=== PATIENT | female | born 1975 | race Caucasian/White ===

== ENCOUNTER 2018-03-16 09:00 | Inpatient (IN) | payer OTHER ==
[~2018-03-16] VITALS: Ht 165.1 cm; Wt 69.0 kg
[~2018-03-16 09:00] MED LIST: CYCL10 PO; GABA300 PO; HYDACE10B PO; IBUP600 PO; OXYC5 PO
[2018-03-16] MEDS ORDERED: Verotin-Gr Cap1 EACH PO (09:45)
[2018-03-16 09:54] LABS: BASOPHILS ABSOLUTE AUTO 0.02 K/mm3 (0.00-0.23); BASOPHILS PERCENT AUTO 0 % (0-2); EOSINOPHILS ABSOLUTE AUTO 0.02 K/mm3 (0.00-0.68); EOSINOPHILS PERCENT AUTO 0 % (0-6); Hematocrit 37.9 % (33.0-51.0); Hemoglobin 13.1 g/dL (11.5-16.0); IMMATURE GRAN ABSOLUTE AUTO 0.02 K/mm3 (0.00-0.10); IMMATURE GRAN PERCENT AUTO 0 % (0-1); LYMPHOCYTES ABSOLUTE AUTO 1.39 K/mm3 (0.84-5.20); LYMPHOCYTES PERCENT AUTO 15 % (21-46); MONOCYTES PERCENT AUTO 6 % (4-13); Mean Corpuscular HGB 30.8 pg (26.0-34.0); Mean Corpuscular HGB Conc 34.6 g/dL (31.5-36.5); Mean Corpuscular Volume 89 fL (80-100); Mean Platelet Volume 11.2 fL (9.1-12.4); NEUTROPHILS ABSOLUTE AUTO 7.36 K/mm3 (1.96-9.15); NEUTROPHILS PERCENT AUTO 78 % (41-73); Platelet Count 191 K/mm3 (150-400); Red Blood Cell Count 4.25 M/mm3 (3.80-5.20); White Blood Cell Count 9.41 K/mm3 (4.00-11.30)
[2018-03-16 11:20] LABS: PCO2 Cord - Arterial 53.7 mmHg (40-50); PO2 Cord - Arterial 14.4 mmHg (16-20); pH Cord - Arterial 7.25 (7.28-7.35)
[2018-03-16 11:21] LABS: pH Umbilical Cord - Venous 7.29 (7.26-7.35)
[2018-03-16 11:24] LABS: PCO2 Cord - Venous 50.5 mmHg (40-50); PO2 Cord - Venous 12.3 mmHg (28-32)
[2018-03-17 06:04] LABS: Hematocrit 34.3 % (33.0-51.0); Hemoglobin 11.6 g/dL (11.5-16.0); Mean Corpuscular HGB 30.7 pg (26.0-34.0); Mean Corpuscular HGB Conc 33.8 g/dL (31.5-36.5); Mean Corpuscular Volume 91 fL (80-100); Mean Platelet Volume 10.6 fL (9.1-12.4); Platelet Count 148 K/mm3 (150-400); RDW Coefficient Variation 13.2 % (11.7-14.2); RDW Standard Deviation 43.1 fL (35.1-46.3); Red Blood Cell Count 3.78 M/mm3 (3.80-5.20); White Blood Cell Count 9.57 K/mm3 (4.00-11.30)
== END 2018-03-18 11:00 | disposition home or self-care (01) | DRG 766 ==
LOC: OBS 09:00 → BC 09:24
PROVIDERS: Nurse Practitioner Obstetrics & Gynecology; Obstetrics & Gynecology
PROC: 10D00Z1 Extraction of Products of Conception, Low, Open Approach (ICD-10-PCS; principal; 2018-03-16 10:15)
PROC: 0UT70ZZ Resection of Bilateral Fallopian Tubes, Open Approach (ICD-10-PCS; 2018-03-16 10:15)
DX: O34.211 Maternal care for low transverse scar from previous cesarean delivery (principal); Z3A.36 36 weeks gestation of pregnancy; Z37.0 Single live birth; O69.81X0 Labor and delivery complicated by cord around neck, without compression, not applicable or unspecified
CPT/HCPCS: 36415; 82803; 85025; 85027; 86850; 86900; 86901; J0690; J1885; J2370; J2405; J2590; J2765; J3010; J7120

== ENCOUNTER 2019-04-19 10:22 | Emergency (ER) | payer OTHER ==
[~2019-04-19] VITALS: Ht 165.1 cm; Wt 61.2 kg
[~2019-04-19 10:22] MED LIST changes: +Verotin-Gr Cap1 EACH PO
[2019-04-19] MEDS ORDERED: GABA100 PO (10:46)
[2019-04-19] MEDS ORDERED: [UNRECOGNIZED DRUG - OTHER] PO (10:47)
[2019-04-19 11:23] LABS: BASOPHILS ABSOLUTE AUTO 0.05 K/mm3 (0.00-0.23); BASOPHILS PERCENT AUTO 1 % (0-2); EOSINOPHILS ABSOLUTE AUTO 0.05 K/mm3 (0.00-0.68); EOSINOPHILS PERCENT AUTO 1 % (0-6); Hematocrit 41.8 % (33.0-51.0); Hemoglobin 13.6 g/dL (11.5-16.0); IMMATURE GRAN ABSOLUTE AUTO 0.03 K/mm3 (0.00-0.10); IMMATURE GRAN PERCENT AUTO 0 % (0-1); LYMPHOCYTES ABSOLUTE AUTO 1.54 K/mm3 (0.84-5.20); LYMPHOCYTES PERCENT AUTO 17 % (21-46); MONOCYTES ABSOLUTE AUTO 0.46 K/mm3 (0.16-1.47); MONOCYTES PERCENT AUTO 5 % (4-13); Mean Corpuscular HGB 30.2 pg (26.0-34.0); Mean Corpuscular HGB Conc 32.5 g/dL (31.5-36.5); Mean Corpuscular Volume 93 fL (80-100); Mean Platelet Volume 9.8 fL (9.1-12.4); NEUTROPHILS ABSOLUTE AUTO 7.09 K/mm3 (1.96-9.15); NEUTROPHILS PERCENT AUTO 77 % (41-73); Platelet Count 324 K/mm3 (150-400); RDW Coefficient Variation 13.4 % (11.7-14.2); Red Blood Cell Count 4.51 M/mm3 (3.80-5.20); White Blood Cell Count 9.22 K/mm3 (4.00-11.30)
[2019-04-19 11:46] LABS: Alanine Aminotransfer (ALT/SGP 21 U/L (12-78); Albumin, Blood 4.1 g/dL (3.4-5.0); Alk Phos 88 U/L (50-136); Anion Gap 7 mmol/L (6-16); Aspartate Aminotrans (AST/SGOT 15 U/L (12-37); Bilirubin, Total 0.6 mg/dL (0.1-1.0); Blood Urea Nitrogen 10 mg/dL (8-24); Bun/Creatinine Ratio 13.6 (12.0-20.0); CO2, Blood 27 mmol/L (21-32); Chloride, Blood 103 mmol/L (98-108); Creatinine, Blood 0.74 mg/dL (0.40-1.00); Glomerular Filtration Rate >60 (60-); Glucose, Blood 103 mg/dL (70-99); Potassium, Blood 4.1 mmol/L (3.5-5.5); Sodium, Blood 137 mmol/L (136-145); Total Protein, Blood 8.1 g/dL (6.4-8.2)
== END 2019-04-19 13:18 | disposition home or self-care (01) ==
LOC: ER 10:22
PROVIDERS: Physician Assistant
DX: M50.221 Other cervical disc displacement at C4-C5 level (principal); Z79.899 Other long term (current) drug therapy; F17.200 Nicotine dependence, unspecified, uncomplicated
CPT/HCPCS: 36415; 80053; 85025; 99283

== ENCOUNTER 2020-04-24 18:06 | Emergency (ER) | payer OTHER ==
[~2020-04-24] VITALS: Ht 165.1 cm; Wt 68.0 kg
[~2020-04-24 18:06] MED LIST changes: +GABA100 PO; +[UNRECOGNIZED DRUG - OTHER] PO
== END 2020-04-24 21:35 | disposition home or self-care (01) ==
LOC: ER 18:06
DX: S01.112A Laceration without foreign body of left eyelid and periocular area, initial encounter (principal); F10.129 Alcohol abuse with intoxication, unspecified; F17.200 Nicotine dependence, unspecified, uncomplicated; Z23 Encounter for immunization; W22.8XXA Striking against or struck by other objects, initial encounter
CPT/HCPCS: 12013; 70450; 90471; 90714; 99283-25

== ENCOUNTER 2024-08-20 10:49 | Emergency (ER) | payer OTHER ==
[~2024-08-20] VITALS: Ht 165.1 cm; Wt 58.5 kg
[2024-08-20 11:37] LABS: Albumin, Blood 2.1 g/dL (3.4-5.0); Albumin/Globulin Ratio 0.4 (0.8-1.8); Bilirubin, Direct 1.7 mg/dL (0.0-0.3); Bilirubin, Indirect 1.2 mg/dL (0.1-0.7); Bilirubin, Total 2.9 mg/dL (0.1-1.0); Bun/Creatinine Ratio 12.7 (12.0-20.0); Calcium, Blood 7.7 mg/dL (8.5-10.1); Creatinine, Blood 0.32 mg/dL (0.40-1.00); Globulin, Blood 5.6 g/dL (2.2-4.0); Potassium, Blood 3.3 mmol/L (3.5-5.5); Total Protein, Blood 7.7 g/dL (6.4-8.2)
[2024-08-20 15:40] LABS: International Normalized Ratio 1.34
[2024-08-20 16:13] LABS: BASOPHILS PERCENT AUTO 1 % (0-2); EOSINOPHILS ABSOLUTE AUTO 0.05 K/mm3 (0.00-0.68); EOSINOPHILS PERCENT AUTO 0 % (0-6); Hemoglobin 8.7 g/dL (11.5-16.0); IMMATURE GRAN ABSOLUTE AUTO 0.12 K/mm3 (0.00-0.10); IMMATURE GRAN PERCENT AUTO 1 % (0-1); LYMPHOCYTES ABSOLUTE AUTO 1.73 K/mm3 (0.84-5.20); LYMPHOCYTES PERCENT AUTO 10 % (21-46); MONOCYTES ABSOLUTE AUTO 1.12 K/mm3 (0.16-1.47); MONOCYTES PERCENT AUTO 6 % (4-13); Mean Corpuscular HGB 33.1 pg (26.0-34.0); Mean Corpuscular HGB Conc 33.5 g/dL (31.5-36.5); Mean Corpuscular Volume 99 fL (80-100); Mean Platelet Volume 11.1 fL (9.1-12.4); NEUTROPHILS ABSOLUTE AUTO 14.73 K/mm3 (1.96-9.15); NEUTROPHILS PERCENT AUTO 82 % (41-73); Platelet Count 214 K/mm3 (150-400); RDW Coefficient Variation 18.6 % (11.7-14.2); RDW Standard Deviation 67.4 fL (35.1-46.3); Red Blood Cell Count 2.63 M/mm3 (3.80-5.20); White Blood Cell Count 17.85 K/mm3 (4.00-11.30)
[2024-08-20 17:00] VITALS: BP 119/89
== END 2024-08-20 17:07 | disposition home or self-care (01) ==
LOC: ER 10:49
PROVIDERS: Physician Assistant; Student in an Organized Health Care Education/Training Program
DX: K74.60 Unspecified cirrhosis of liver (principal); F10.90 Alcohol use, unspecified, uncomplicated; F17.210 Nicotine dependence, cigarettes, uncomplicated
CPT/HCPCS: 74177; 80048; 80076; 83690; 83880; 84703; 85025; 85610; 85730; 99284-25; Q9967

== ENCOUNTER 2025-01-10 10:01 | Inpatient (IN) | payer OTHER ==
[~2025-01-10] VITALS: Ht 165.1 cm; Wt 58.8 kg
[2025-01-10] MEDS ORDERED: NS 1,000 ML IV SCH ×2 (10:40→13:45)
[2025-01-10] MEDS ORDERED: Morphine Sulfate 4 MG/1 ML Injection IV ONE (10:40)
[2025-01-10] MEDS ORDERED: Ketorolac Tromethamine 30mg Vial IV ONE (10:40)
[2025-01-10 11:29] LABS: Hematocrit 30.3 % (33.0-51.0); Hemoglobin 10.3 g/dL (11.5-16.0); Mean Corpuscular HGB 30.4 pg (26.0-34.0); Mean Corpuscular Volume 89 fL (80-100); Mean Platelet Volume 10.7 fL (9.1-12.4); Platelet Count 63 K/mm3 (150-400); RDW Coefficient Variation 14.6 % (11.7-14.2); RDW Standard Deviation 46.9 fL (35.1-46.3); Red Blood Cell Count 3.39 M/mm3 (3.80-5.20); White Blood Cell Count 16.51 K/mm3 (4.00-11.30)
[2025-01-10 11:36] LABS: Albumin, Blood 3.1 g/dL (3.4-5.0); Albumin/Globulin Ratio 0.6 (0.8-1.8); Bilirubin, Total 2.6 mg/dL (0.1-1.0); Bun/Creatinine Ratio 37.3 (12.0-20.0); C-REACTIVE PROTEIN, EXT RANGE 12.8 mg/dL (0.000-0.300); Calcium, Blood 8.6 mg/dL (8.5-10.1); Creatinine, Blood 0.91 mg/dL (0.40-1.00); Globulin, Blood 5.2 g/dL (2.2-4.0); Potassium, Blood 2.8 mmol/L (3.5-5.5); Total Protein, Blood 8.3 g/dL (6.4-8.2)
[2025-01-10] MEDS ORDERED: Lactated Ringer's 1,000 ML IV ONE (12:00)
[2025-01-10] MEDS ORDERED: Potassium Chloride 60 MEQ IV ONE (12:00)
[2025-01-10] MEDS ORDERED: Potassium Chloride 20 MEQ in NS 90 ML IV SCH (12:10)
[2025-01-10] MEDS ORDERED: Ampicillin Sod/Sulbactam Sod 3 GM in NS 100 ML IV ONE (12:15)
[2025-01-10] MEDS ORDERED: Fluorescein Sod 1MG Opth Strips BOTHEYES ONE (12:25)
[2025-01-10] MEDS ORDERED: Tetracaine HCl/Pf 0.5% Opth Soln 4 ml BOTHEYES ONE (12:25)
[2025-01-10 12:37] LABS: BAND PERCENT MAN 29 % (0-8); BASOPHILS PERCENT MAN 0 % (0-2); EOSINOPHILS PERCENT MAN 0 % (0-6); LYMPHOCYTES ABSOLUTE MAN 0.33 K/mm3 (0.84-5.20); LYMPHOCYTES PERCENT MAN 2 % (21-46); MONOCYTES ABSOLUTE MAN 0.49 K/mm3 (0.16-1.47); MONOCYTES PERCENT MAN 3 % (4-13); NEUTROPHILS ABSOLUTE MAN 15.68 K/mm3 (1.96-9.15); SEG NEUTROPHILS PERCENT MAN 66 % (41-73); TOTAL CELLS COUNTED 100
[2025-01-10] MEDS ORDERED: Vancomycin HCL 1,250 MG in NS 250 ML IV ONE (12:45)
[2025-01-10] MEDS ORDERED: Ofloxacin 0.3% Opth Soln 5 ML BOTHEYES ONE (13:00)
[2025-01-10] MEDS ORDERED: FLU VACC TS2024-25(6MOS UP)/PF 45 MCG/0.5 ML SYRINGE IM SCH (13:45)
[2025-01-10] MEDS ORDERED: OxyCODONE 5 mg/Acetamin 325 mg TABLET PO PRN (13:50)
[2025-01-10] MEDS ORDERED: Ketorolac Tromethamine 30mg Vial IV PRN (13:55)
[2025-01-10 15:50] VITALS: BP 128/73
[2025-01-10 16:00] VITALS: BP 119/63
[2025-01-10 17:00] VITALS: BP 116/64
[2025-01-10] MEDS ORDERED: Erythromycin 0.5% Opth Oint 1 gm LEFTEYE SCH (17:00)
--- NOTE | 2025-01-10 17:30 | NUR ---
THIS RN ASSUMED CARE OF PT AT 1630. PT IS ALERT AND ORIENTED AND VERY POLITE, CALLS OUT APPROPRIATELY. PT HEART RATE IS IN THE 120s, BLOOD PRESSURE IS STABLE AT 116/64 MAP OF 79, PT DENIES ANY CHEST PAIN UPON ASSESSMENT. PT IS ON ROOM AIR SATTING >95%, SOUNDS CLEAR THROUGHOUT AND PT DENIES SHORTNESS OF BREATH. PT LEFT EYE IS EXTREMELY SWOLLEN AND PAINFUL, BEING TREATED PER EMAR. DR. JONES HAS SEEN PT BEDSIDE, OPTHAMOLOGY HAS BEEN CONSULTED, NEW ORDERS ALSO PLACED BY DR. JONES. PT CAN VOID PER TOILET WITH NURSE ASSIST. NO OTHER INTERVENTIONS AT THIS TIME. PLAN OF CARE CONTINUED.
[2025-01-10] MEDS ORDERED: Ampicillin Sod/Sulbactam Sod 3 GM in NS 100 ML IV SCH (18:30)
--- NOTE | 2025-01-10 18:31 | NUR ---
Pt. is awake and sitting in a chair when she welcomes my visit. Pt. is very pleasant in spite of one of her eyes being swelled and oozing. Facilitated a life review and established a measure of rapport. Considered matters of sudha and belief. Prayed with Pt. Pt. verbalized gratitude for the spiritual life visit and welcomed this terra cotta roofer to return.
[2025-01-10 19:47] VITALS: BP 77/62
[2025-01-10 19:53] VITALS: BP 77/762
--- NOTE | 2025-01-10 20:39 | NUR ---
ASSUMPTION OF CARE CARE ASSUMED FOR THIS PT. PT SITTING UP IN BED ALERT AND ORIENTED TO ALL. MAEW. NO DIZZINESS, LIGHTHEADEDNESS. PT DOES ADMITS TO OCCASIONAL BLURRY VISION IN RIGHT EYE. LEFT EYE IS SEVERELY SWOLLEN, RED, TENDER, WITH EXUDATIVE DRAINAGE. THE PAIN IS PRESSURE LIKE AND THE ARE OF PAIN IS INCREASING AND SPREADING DOWN LEFT NECK AND FRONT OF HEAD UP TOWARDS CROWN OF HEAD. PT DOES NOTE SOME ATYPICAL, SPOTTY AREAS OF PAIN ON HER HEAD THAT IS A DIFFRENT CHARACTER OF PAIN, "MORE LIKE AFTER BUMPING MY HEAD." PAIN WILL BE CONTROLLED WITH ENVIRONMENTAL CONTROL, MEDS, REST. PIC OF BOTH EYE TAKEN. HR SINUS TACH AND MAP > 65. 100% ON RA. NO CHEST PAIN/PRESSURE, AB PAIN. NS INFUSING AT 150ML/HR. PT HAS CALL LIGHT HANDY.
[2025-01-10] MEDS ORDERED: Lactobacil 2-S.Thermo-Bifido 1 1 Cap PO SCH (21:00)
[2025-01-11] VITALS (16 sets, daily range): BP systolic 83–133; BP diastolic 55–85
[2025-01-11] MEDS ORDERED: Vancomycin HCL 750 MG in NS 250 ML IV SCH ×2 (02:00→18:00)
[2025-01-11 04:12] LABS: Hematocrit 25.9 % (33.0-51.0); Hemoglobin 8.7 g/dL (11.5-16.0); Mean Corpuscular HGB 30.3 pg (26.0-34.0); Mean Corpuscular HGB Conc 33.6 g/dL (31.5-36.5); Mean Corpuscular Volume 90 fL (80-100); Mean Platelet Volume 9.8 fL (9.1-12.4); RDW Coefficient Variation 14.6 % (11.7-14.2); RDW Standard Deviation 47.9 fL (35.1-46.3); Red Blood Cell Count 2.87 M/mm3 (3.80-5.20); White Blood Cell Count 13.22 K/mm3 (4.00-11.30)
[2025-01-11 04:19] LABS: Platelet Count 47 K/mm3 (150-400)
[2025-01-11 04:41] LABS: Bun/Creatinine Ratio 49.3 (12.0-20.0); Calcium, Blood 7.8 mg/dL (8.5-10.1); Creatinine, Blood 0.65 mg/dL (0.40-1.00); Potassium, Blood 3.2 mmol/L (3.5-5.5)
[2025-01-11 04:50] LABS: BAND PERCENT MAN 17 % (0-8); BASOPHILS PERCENT MAN 0 % (0-2); EOSINOPHILS ABSOLUTE MAN 0.52 K/mm3 (0.00-0.68); EOSINOPHILS PERCENT MAN 4 % (0-6); METAMYELOCYTE ABSOLUTE MAN 0.26 K/mm3 (0.00-0.00); METAMYELOCYTE PERCENT MAN 2 % (0-0); MONOCYTES ABSOLUTE MAN 0.13 K/mm3 (0.16-1.47); MONOCYTES PERCENT MAN 1 % (4-13); NEUTROPHILS ABSOLUTE MAN 12.29 K/mm3 (1.96-9.15); SEG NEUTROPHILS PERCENT MAN 76 % (41-73); TOTAL CELLS COUNTED 100
[2025-01-11] MEDS ORDERED: Potassium Chloride 40 MEQ in NS 250 ML IV ONE (05:58)
--- NOTE | 2025-01-11 06:23 | NUR ---
pt ambulated from ICU to PCU bed 19, pt alert and oriented. pt oriented to room, call light, etc. no s/s of distress noted
[2025-01-11] MEDS ORDERED: Enoxaparin 40 MG/0.4 ML SYR SC SCH (09:00)
--- NOTE | 2025-01-11 09:15 | NUR ---
AM NOTES; TRANSITIONED TO MED STATUS NO TELE. PT HAS BEEN AMBULATING IN HE ROOM INDEPENDENTLY. DR WAY CAME BY TO SEE PT TODAY, NO NEW ORDERS AT THIS TIME TO CONTINUE ANTIBIOTICS AND TO FF-UP IN A COUPLE DAYS. DR MCKEON CAME BY WELL, NO NEW ORDERS. PT'S MOM AT THE BEDSIDE TO VISIT. NS AT 100 MLS/HR RUNNING VIA PIV. POTASSIUM BAG INFUSING WELL. LEFT EYE REMAINED SWOLLEN BUT PER PT SWELLING HAS GONE DOWN A LITTLE BIT, SCABS AND EXUDATES PRESENT. ERYTHROMYCIN OINTMENT ADMINISTER THIS MORNING, PT WAS GIVEN A PACK OF STERILE GAUZE TO WIPE OFF EXUDATE. VITALS HAS BEEN STABLE, WILL CONTINUE TO MONITOR
--- NOTE | 2025-01-11 10:44 | NUR ---
Pt. is awake and sitting on the side of her bed when she welcomes my visit. Pts. turbine attendant is at bedside. Pt. verbalized that she feels there is progress, and that the doctors have helped confirm that her eyesight in both eyes is intact. Consderd matters of sudha and belief. Pt. is getting good spiritual care from her turbine attendant. Pt. verbalized ratitude for the spiritual care visit and welcomed this photographer portrait to return.
--- NOTE | 2025-01-11 11:41 | NUR ---
PT GOT LITTLE BIT AGITATED OF THE FLUIDS CURRENTLY INFUSING AT THIS TIME, PT ASKED WHY ITS TAKING FOREVER TO FINISH, EXPLAINED TO THE PT THAT IT IS A CONTINUOUS FLUIDS NEEDS TO BE INFUSED AND IF NEED HELP TO THE BATHROOM ASSISTANCE MAYBE NEEDED AND WAS INSTRUCTED TO USE CALL LIGHTS, PT THEN STATED "I DONT WANT TO USE THE BATHROOM RIGHT NOW I WANTED TO GO OUT IN THE PARKING LOT". WHEN PT WAS ASKED WHY SHE NEEDED TO GO TO THE PARKING LOT PT STATED "I WANTED TO GO OUT AND SMOKE". PT WAS EDUCATED ABOUT SMOKING HAZARDS AND THAT THE FACILITY IS A NO SMOKING FACILITY. PT REPLIED BACK "IM NOT SMOKING IN YOUR FACILITY IM GOING TO THE EMPTY BUILDING CLOSE BY AND SMOKE THERE" PT WAS THEN AGAIN EDUCATED AND OFFERED NICOTINE PATCH PT STILL REFUSED PT STATED NONE OF THEM WORKED FOR HER. OUTSOLE CUTTER MACHINE MADE AWARE. WILL CONTINUE TO MONITOR AT THIS TIME
[2025-01-11] MEDS ORDERED: CeFAZolin Sodium 2,000 MG in NS 100 ML IV SCH (12:00)
[2025-01-11] MEDS ORDERED: Nicotine Polacrilex 2 MG Gum PO PRN (13:10)
[2025-01-11] MEDS ORDERED: LORazepam 1 MG Tab PO PRN (13:10)
--- NOTE | 2025-01-11 14:20 | NUR ---
AT AROUND LUNCH TIME 1230 PT STARTED GETTING MORE ANXIOUS, ASSISTED TO THE BATHROOM TO CHANGE HOME CLOTHES TO GOWN, NOTICED SOME TREMORS AND UNSTEADY GAIT, PT WAS ASKED IF SHE'S ANXIOUS PT STATED "I JUST HEARD MY FAMILY OUTSIDE TALKING ABOUT ME AND I SAW MY KIDS EARLIER RUNNING AROUND". THIS RN ASKED ORIENTATION QUESTIONS, PT CAN STATE NAME , ALERT TO PERSON AND PLACE UNSURE OF DATE. DENIES ANY NAUSEA AND HEADACHE. PT WAS ASKED IF SHE DRINKS ALCOHOL PT WAS UNSURE OF RESPONSE "I HAVE IT IN MY BAG BEFORE I CAME IN BUT I HAVENT DRINK IT." CALLED EDIN TO GATHER MORE INFO DIDNT COUNTY SHERIFF MOTHER JEN WHO'S AT THE BEDSIDE THIS MORNING WAS CALLED WELL ABLE TO SAY THAT THE PT WAS IN REHAB FOR ALCOHOL ADDICTION FOR 6 WEEKS PRIOR TO COMING INTO THE HOSPITAL THEN CALLED BACK WAS ABLE TO VERIFY THE INFORMATION THAT THE MOM PROVIDED. MADE AWARE ORDER FOR ATIVAN 1MG Q4HRS WAS GIVEN ALSO NICORETTE GUM WHICH PT AGREED ON. CAME IN SOON AFTER THE CALL, THERE WAS SOME ARGUMENT I THE ROOM BETWEEN AND THE PT, PT SEEMED TO BE IN DENIAL IF STILL DRINKING ALCOHOL. AFTER THE ARGUMENT AND WHAT THE HAS NOTICED FROM THE PT, CAME OUT OF THE ROOM AND REPORTED TO THIS RN "YEAH I THINK SHE'S DEFINITELY WITHDRAWING WITH HER TREMORS AND THE HALLUCINATION" PT NOW RESTING IN BED AFTER 1MG OF ATIVAN WAS GIVEN, BED ALARM ON FOR SAFETY. CALL LIGHTS IN REACH. WILL CONTINUE TO MONITOR CIWA
--- NOTE | 2025-01-11 16:29 | NUR ---
UPDATE FACIAL SWELLING; FACE WAS MARKED AROUND LUNCH TIME NOTICED SOME INCREASE REDNESS AND SOME SWELLING CRAWLING DOWN THE CHEEK AND JAW AREA. MD AWARE, TO CONTINUE TO MONITOR AT THIS TIME, AND THEN THIS AFTERNOON WHEN PT WAS ASSISTED TO THE BATHROOM THE REDNESS AND SWELLING WAS PASS THE INK TRINO AND THE PT REPORTED TENDERNESS WHEN TOUCHED. MD CALLED AND MADE AWARE AGAIN ABLE TO COME BY AND SEE THE PT, TO REPEAT SCAN AWAITING FOR ORDERS AT THIS TIME, VITALS REMAINED STABLE. PT STILL HAS SOME CONFUSION, BED ALARM ON FOR SAFETY. WILL CONTINUE TO MONITOR
[2025-01-11] MEDS ORDERED: Meropenem 1,000 MG in NS 100 ML IV SCH (17:00)
--- NOTE | 2025-01-11 18:49 | NUR ---
PT SUMMARY; SEE PREVIOUS NOTES; DR WOOTEN CAME BACK TO REASSESS PT'S EYE AGAIN. ALSO LOOKED AT THE CURRENT HEAD CT. NO NEW ORDERS AT THIS TIME. PT STILL CONFUSED HALLUCINTATING, TREMULOUS CIWA AT 15 PT IMPULSIVE TRIED TO GO TO THE BATHROOM WITHOUT CLLING ALMOST HAD A FALL THIS RN CAUGHT PT RIGHT ON TIME, PT WAS GIVEN ANOTHER ATIVAN DOSE. DISCUSSED WITH PROGRAM SUPPORT SPECIALIST A NEED FOR A POSSIBLE SITTER TONIGHT. CAME AND WILLING TO STAY IF NEEDED. ALSO WAS GIVEN UPDATE REGARDING PT'S STATUS. PT ADMITTED OF DRINKING WHITE CLAWS PRIOR TO COMING TO THE HOSPITAL. PT NOW BACK IN BED RESTING. WILL REPORT TO ONCOMING SHIFT
--- NOTE | 2025-01-11 20:07 | NUR ---
ASSUMPTION OF CARE REPORT RECEIVED FROM DAY SHIFT RN AT 1915. ASSISTING PATIENT BACK TO BED DURING BEDSIDE SHIFT REPORT. PATIENT SHAKEY WITH AMBULATION. DAY SHIFT RN REPORTING HALLUCINATIONS DURING DAY SHIFT. AND PATIENT DENYING NEEDS AT THIS TIME. 1999- PATIENT WITH AUDITORY/VISUAL HALLUCATIONS AND TREMORS. PATIENT CALLING OUT AND OUT OF BED. CIWA 17. THIS RN CALLED HOSPITALIST TACHO WITH UPDATE. TACHO TO PLACE ORDERS.
[2025-01-11] MEDS ORDERED: LORazepam 2 MG/ML 1ML Injection IV PRN ×2 (20:10)
[2025-01-11] MEDS ORDERED: dexmedeTOMIDine 100 ML IV SCH (21:25)
--- NOTE | 2025-01-11 21:25 | NUR ---
TRANSFER TRANSFERRED FROM PCU VIA BED. PT IS ALERT, ORIENTED TO SELF ONLY AT THIS TIME. FOLLOWS SOME SIMPLE COMMANDS. MOVES ALL EXTREMITIES AND REPOSITIONS SELF IN BED. MUMBLED, NON-SENSICAL SPEECH. MONITOR SHOWS ST, RATE 100-110. BP STABLE. AFEBRILE. RA SATS STABLE. RESPIRATIONS UNLABORED, BUT DOES HAVE SNORING RESPIRATIONS AT TIMES. LEFT EYE CELLULITIS NOTED, MARKED WITH PEN- SEE PICTURES. PRECEDEX TO BE STARTED. PURE WICK PLACED. NOTIFIED OF TRANSFER BY HEBER RAMIREZ RN.
[2025-01-12] VITALS (38 sets, daily range): BP systolic 78–145; BP diastolic 49–84
[2025-01-12 04:03] LABS: Hematocrit 25.1 % (33.0-51.0); Hemoglobin 8.4 g/dL (11.5-16.0); Mean Corpuscular HGB 30.2 pg (26.0-34.0); Mean Corpuscular HGB Conc 33.5 g/dL (31.5-36.5); Mean Corpuscular Volume 90 fL (80-100); Mean Platelet Volume 10.8 fL (9.1-12.4); RDW Coefficient Variation 14.6 % (11.7-14.2); RDW Standard Deviation 48.9 fL (35.1-46.3); Red Blood Cell Count 2.78 M/mm3 (3.80-5.20)
[2025-01-12 04:16] LABS: Platelet Count 42 K/mm3 (150-400)
[2025-01-12 04:27] LABS: BAND PERCENT MAN 7 % (0-8); BASOPHILS PERCENT MAN 0 % (0-2); EOSINOPHILS ABSOLUTE MAN 0.47 K/mm3 (0.00-0.68); EOSINOPHILS PERCENT MAN 6 % (0-6); LYMPHOCYTES ABSOLUTE MAN 0.63 K/mm3 (0.84-5.20); LYMPHOCYTES PERCENT MAN 8 % (21-46); MONOCYTES ABSOLUTE MAN 0.63 K/mm3 (0.16-1.47); MONOCYTES PERCENT MAN 8 % (4-13); NEUTROPHILS ABSOLUTE MAN 6.16 K/mm3 (1.96-9.15); SEG NEUTROPHILS PERCENT MAN 71 % (41-73); TOTAL CELLS COUNTED 100
[2025-01-12 04:31] LABS: Bun/Creatinine Ratio 32.7 (12.0-20.0); Calcium, Blood 7.8 mg/dL (8.5-10.1); Creatinine, Blood 0.46 mg/dL (0.40-1.00); Potassium, Blood 3.5 mmol/L (3.5-5.5)
--- NOTE | 2025-01-12 06:13 | NUR ---
SHIFT SUMMARY PT STARTED ON PRECEDEX FOR INCREASED CIWA. TITRATED BETWEEN 0.2-0.5MCG/KG/HR BUT THEN EVENTUALLY STOPPED D/T HYPOTENSION. CIWA 9-21. MEDICATED WITH ATIVAN 2MG IV THIS AM. PT IS IMPULSIVE AND RESTLESS WHEN AWAKE. SPEECH IS MUMBLED. ORIENTED TO SELF ONLY. MOVES ALL EXTREMITIES AND REPOSITIONS SELF IN BED. PT WAS TACHYCARDIC WHEN FIRST TRANSFERRED, BUT HR IS NOW 60s. MAP >65 AT THIS TIME. RA SATS STABLE. AFEBRILE. PUREWICK IN PLACE- DARK YELLOW URINE. LEFT EYE/FACE/THROAT UNCHANGED. NS INFUSING AT 150MLS/HR. PLAN OF CARE ONGOING. WILL REPORT TO ONCOMING RN WHEN AVAILABLE.
[2025-01-12] MEDS ORDERED: NS 1,000 ML IR ONE (10:00)
--- NOTE | 2025-01-12 14:51 | NUR ---
ASSUMED CARE AT 0700. PATIENT LETHARGIC AND LIMITED ASSESSMENT IN THE AM. PATIENT NOW MORE INTERACTIVE WITH ENVIRONMENT, FOLLOWING COMMANDS, COOPERATIVE PATIENT RESTING COMFORTABLY. VSS. NOTED TO BE DESATURATING DOWN INTO THE MID 80'S. 2LNC APPLIED. AFEBRILE. PER DR. SIMMONS (EYE DOC) PATIENT IS IMPROVING. FAMILY UPDATED AND AT BEDSIDE.
[2025-01-12] MEDS ORDERED: Thiamine HCl 500 MG in NS 100 ML IV SCH (16:00)
[2025-01-12] MEDS ORDERED: CeFAZolin Sodium 2,000 MG in NS 100 ML IV SCH (16:00)
[2025-01-13] VITALS (13 sets, daily range): BP systolic 104–130; BP diastolic 66–93
[2025-01-13 03:41] LABS: Hematocrit 25.3 % (33.0-51.0); Hemoglobin 8.3 g/dL (11.5-16.0); Mean Corpuscular HGB 29.7 pg (26.0-34.0); Mean Corpuscular HGB Conc 32.8 g/dL (31.5-36.5); Mean Corpuscular Volume 91 fL (80-100); Mean Platelet Volume 11.4 fL (9.1-12.4); Platelet Count 51 K/mm3 (150-400); RDW Coefficient Variation 14.7 % (11.7-14.2); RDW Standard Deviation 48.7 fL (35.1-46.3); Red Blood Cell Count 2.79 M/mm3 (3.80-5.20); White Blood Cell Count 6.87 K/mm3 (4.00-11.30)
[2025-01-13 04:03] LABS: Albumin, Blood 2.2 g/dL (3.4-5.0); Albumin/Globulin Ratio 0.6 (0.8-1.8); Bilirubin, Total 2.9 mg/dL (0.1-1.0); Bun/Creatinine Ratio 24.9 (12.0-20.0); Calcium, Blood 7.7 mg/dL (8.5-10.1); Creatinine, Blood 0.44 mg/dL (0.40-1.00); Globulin, Blood 3.8 g/dL (2.2-4.0)
[2025-01-13 05:31] LABS: BAND PERCENT MAN 3 % (0-8); BASOPHILS PERCENT MAN 0 % (0-2); EOSINOPHILS ABSOLUTE MAN 0.27 K/mm3 (0.00-0.68); EOSINOPHILS PERCENT MAN 4 % (0-6); LYMPHOCYTES PERCENT MAN 19 % (21-46); MONOCYTES ABSOLUTE MAN 0.61 K/mm3 (0.16-1.47); MONOCYTES PERCENT MAN 9 % (4-13); NEUTROPHILS ABSOLUTE MAN 4.67 K/mm3 (1.96-9.15); SEG NEUTROPHILS PERCENT MAN 65 % (41-73); TOTAL CELLS COUNTED 100
--- NOTE | 2025-01-13 05:58 | NUR ---
SHIFT SUMMARY NO ACUTE CHANGES DURING NOC. SLEPT WHEN UNDISTURBED. ROUSES EASILY TO VERBAL STIMULI. ORIENTED TO SELF AND TO PLACE, BUT NOT TO DATE/TIME. CIWA 6-7 DURING NOC. UP TO BSC WITH ONE PERSON ASSIST. VOIDING WITHOUT DIFFICULTY. TOLERATING FLUIDS. PT IS WEAK. DENIES C/O PAIN OR NAUSEA AT THIS TIME. PLACED ON 2L NC WHILE ASLEEP D/T SATS DROPPING TO MID-80s. BP WNL. AFEBRILE. NS INFUSING AT 150MLS/HR PER ORDER. NO CHANGED NOTED TO FACIAL CELLULITIS. PLAN OF CARE ONGOING.
[2025-01-13 06:11] LABS: Magnesium, Blood 1.4 mg/dL (1.6-2.4); Phosphorus, Blood 1.7 mg/dL (2.5-4.9)
[2025-01-13] MEDS ORDERED: Magnesium Sulf 2 GM/Water 50ML 50 ML IV ONE (06:45)
[2025-01-13] MEDS ORDERED: Potassium Phosphate Dibasic 30 MM in Dextrose 5% 500 ML IV ONE (06:45)
--- NOTE | 2025-01-13 07:26 | NUR ---
ASSUMED CARE OF PATIENT AT APPROXIMATELY 0700. REPORT RECEIVED FROM NERIS MOON. PT ASLEEP IN BED, WAKES AND INTERACTS WITH STAFF APPROPRIATELY DURING BEDSIDE REPORT. SWELLING TO L EYELID, CHEEK, AND JAW VISUALIZED. PT DENIES PAIN. CONTINUOUS CARDIAC MONITORING IN PLACE SHOWS SR, BP STABLE c MAP > 65. ON RA WITH O2 SATURATION > 92%. NS INFUSING AT 150 mL/HR. SEE SHIFT ASSESSMENT FOR FULL DETAILS.
[2025-01-13] MEDS ORDERED: NS 1,000 ML IV SCH (13:55)
--- NOTE | 2025-01-13 17:37 | NUR ---
SHIFT SUMMARY NO ACUTE CHANGES T/O SHIFT. CIWA SCORES < 8. UNSURE OF DATE AND TIME, OTHERWISE ORIENTED TO PERSON/SELF/PLACE/FAMILY/SITUATION. EYE SWELLING AND DISCOLORATION HAS IMPROVED SINCE THIS AM. MEDICATED FOR PAIN PER EMAR c GOOD BENEFIT. REPORT GIVEN TO NERISSA CORDON IN PCU AT 8671. PT TRANSFERRED VIA ENTRY WRITER AT 8605 TO PCU 06.
--- NOTE | 2025-01-13 18:16 | NUR ---
[place] of care: Received patient from ICU. Alert but slightly confused. No complaints of pain. Very unsteady on her feet when moving to bed from wheelchair. In NSR in the 70s with SBP 120s. On room air with stable oxygen saturations. Eating dinner. Voiding continently in commode per SALES ENABLEMENT SPECIALIST report. LBM today. PIV & powerglide IV in place. NS infusing at 75 cc/hr. L eye with edema/erythema -- ointment applied per orders. Will monitor.
[2025-01-14 03:57] VITALS: BP 122/76
[2025-01-14 04:15] LABS: Albumin, Blood 2.2 g/dL (3.4-5.0); Albumin/Globulin Ratio 0.6 (0.8-1.8); Bilirubin, Total 2.5 mg/dL (0.1-1.0); Bun/Creatinine Ratio 18.5 (12.0-20.0); Calcium, Blood 7.3 mg/dL (8.5-10.1); Creatinine, Blood 0.43 mg/dL (0.40-1.00); Globulin, Blood 3.9 g/dL (2.2-4.0); Total Protein, Blood 6.1 g/dL (6.4-8.2)
[2025-01-14 05:34] LABS: Magnesium, Blood 1.8 mg/dL (1.6-2.4)
--- NOTE | 2025-01-14 06:39 | NUR ---
SHIFT SUMMARY PT ALERT AND ORIENTED THROUGHOUT NIGHT. VSS ON RA. REMAINS ON TELE NSR 70s-80s. PT SHOWS MILD TO MODERATE TREMORS HOWEVER NO OTHER S/S OF WITHDRAWL THROUGHOUT NIGHT. PT DRINKING SMALL AMOUNTS OF FLUIDS AND WAS ABLE TO EAT FRUIT, THIS RN DECIDED TO CONTINUE NS FLUIDS AT THIS TIME. PT AT TIMES INCONTINENT OF URINE. ABDOMEN DISTENDED UPON ASSESSMENT. PT REPORTS MILD PAIN TO L EYE. PT EDUCATED ON HOW TO KEEP AREA CLEAN AND TO NOT TOUCH. NO FURTHER QUESTIONS OR CONCERNS AT THIS TIME. WILL CONTINUE WITH PLAN OF CARE AND REPORT TO ONCOMING NURSE.
[2025-01-14 07:31] VITALS: BP 130/86
[2025-01-14] MEDS ORDERED: Potassium Chloride 20 MEQ TabCR PO ONE (09:00)
[2025-01-14 11:01] VITALS: BP 124/78
[2025-01-14] MEDS ORDERED: LORazepam Conc 2 MG/ML - 1ML UDC PO PRN (14:55)
[2025-01-14 15:13] VITALS: BP 134/86
[2025-01-14] MEDS ORDERED: Erythromycin 0.5% Opth Oint 3.5 gm LEFTEYE SCH (17:00)
--- NOTE | 2025-01-14 18:06 | NUR ---
SHIFT SUMMARY PT REMAINS ALERT AND OREINTED, BUT LETHARGIC THIS AFTERNOON. BP STABLE. O2 SATS REMAIN ABOVE 90% ON RA. HR REMAINS NSR. PT DENIES ANY PAIN. WOUND TO EYE CLEANSED THIS SHIFT AND OINTMENT APPLIED PER EMAR. BED ALARM ON FOR SAFETY PATIENT TENDS TO GET UP BEOFRE CALLING. PT UNSTEADY ON HER FEET. WILL REPORT TO ONCOMING RN.
[2025-01-14 19:31] VITALS: BP 128/84
[2025-01-14] MEDS ORDERED: Nicotine Polacrilex 2 MG Gum PO PRN (21:10)
[2025-01-15 00:02] VITALS: BP 118/68
[2025-01-15 03:42] VITALS: BP 108/75
[2025-01-15 08:14] VITALS: BP 126/78
[2025-01-15 12:12] VITALS: BP 121/85
--- NOTE | 2025-01-15 17:40 | NUR ---
NURSING PCU DAYSHIFT SUMMARY: Pt has done well t/o the shift. Seen by PMD, new d/o received. Evaluated by P.T., ambulated halls w/o difficuly or use of assistive devices, received recommendation for independent ambulation per assessment. Family/friends at bedside intermittently t/o the shift. Updates provided and plan of care discussed. Pt appears in good spirits, hopeful for discharge soon though continues to deny desire for inpatient treatment options, outpatient services/resources provided by manager career. No s/s of acute distress at this time. Currently sitting on edge of bed having supper. Call light in reach, cont to monitor until rpt is given to NOC RN.
[2025-01-15 19:48] VITALS: BP 118/90
[2025-01-16 03:00] VITALS: BP 117/79
--- NOTE | 2025-01-16 05:18 | NUR ---
SHIFT SUMMARY NO ACUTE CHANGES THIS SHIFT. VSS. AXO4. INDEPENDENT IN ROOM. L EYE REMAINS SWOLLWN SHUT, PT STATES CONTINUED ABILITY TO SEE WITH EYE BUT DIFFICULT TO OPEN EYELIDS - PURULENT & SEROUS DRAINAGE NOTED, OINTMENT PER EMAR APPLIED. POWERGLIDE REMAINS PATENT. PT HOPING TO DC TODAY. OTHERWISE, PT RESTING OFF AND ON THIS SHIFT. BED IN LOW POSITION.
[2025-01-16 07:29] VITALS: BP 120/77
--- NOTE | 2025-01-16 09:51 | NUR ---
Pt. is awake and sitting upon the side of her bed when she welcomes my visit. Pt. is pleasant. Pt. verbalizes that she expects to discharge sometime today, and will get a second opinion from another eye doctor. Pt. displays evidence of confidence but is a little unsettled by the distraction of her eye infection. Cigarette Inspector Care is given as is prayer. Pt. verbalized gratitude for the spiritual care visit.
[2025-01-16] MEDS ORDERED: ERYT.5TO LEFTEYE (10:53)
[2025-01-16] MEDS ORDERED: CEPHALEXIN500 MG PO (11:00)
[2025-01-16] MEDS ORDERED: VISBIOME 112.51 EACH PO (11:00)
[2025-01-16] MEDS ORDERED: NICO2 PO (11:01)
--- NOTE | 2025-01-16 12:26 | NUR ---
1120 am: Pt was given discharge instructions and new prescriptions were reviewed with her. New Rx was faxed to [facility] in [place] at pt request. Request for medical records from [facility] to be sent to [facility] for inpatient alcohol addiction referral were faxed after pt completed and signed release of records request. Pt was given dates and times of follow up appointments with her PCP and with eye doctor, verbal and written. Powerglide was removed from RUE and pt called to have a ride arranged for herself.
== END 2025-01-16 11:38 | disposition home or self-care (01) | DRG 871 ==
LOC: ER 10:01 → PCU 13:42 → ERHOLD 13:42 → PCU 15:32 → ICUE 15:34 → PCU 01-11 05:59 → ICUE 01-11 21:20 → PCU 01-13 17:36
PROVIDERS: Internal Medicine; Student in an Organized Health Care Education/Training Program; ADMIT Internal Medicine
DX: A41.9 Sepsis, unspecified organism (principal); G93.41 Metabolic encephalopathy; R65.21 Severe sepsis with septic shock; E87.1 Hypo-osmolality and hyponatremia; E87.20 Acidosis, unspecified; L03.213 Periorbital cellulitis; F10.239 Alcohol dependence with withdrawal, unspecified; F17.210 Nicotine dependence, cigarettes, uncomplicated; D64.9 Anemia, unspecified; E87.6 Hypokalemia; M54.2 Cervicalgia; G89.29 Other chronic pain; J32.9 Chronic sinusitis, unspecified; E83.39 Other disorders of phosphorus metabolism; E83.42 Hypomagnesemia; Z87.59 Personal history of other complications of pregnancy, childbirth and the puerperium; Z98.1 Arthrodesis status
CPT/HCPCS: 36415; 70481; 70487; 80048; 80053; 83605; 83735; 84100; 85025; 85651; 86140; 87040; 87070; 87075; 87077; 87147; 87186; 87205; 93005; 93010; 96361; 96365; 96375; 97116; 97162; 99285-25; A9270; C1751; J0295; J0690; J1650; J1885; J2060; J2185; J2270; J3370; J3411; J3475; J3480; J7030; J7050; J7060; J7120; Q9967

== ENCOUNTER 2025-01-19 12:29 | Inpatient (IN) | payer OTHER ==
[~2025-01-19 12:29] MED LIST changes: +CEPHALEXIN500 MG PO; +ERYT.5TO LEFTEYE; +NICO2 PO; +VISBIOME 112.51 EACH PO
--- NOTE | 2025-01-19 13:19 | NUR ---
PT ARRIVED TO UNIT DIRECT ADMIT NOTIFIED DR NICOLE OF ADMIT, IN ROOM W/PT NOW. ORIENTED PT TO USE OF CALL LIGHT. PHOTOS TAKEN OF L EYE FOR CHART. CIGARETTES AND POLLUTION CONTROL TECHNICIAN LOCKED ON UNIT.
[2025-01-19] MEDS ORDERED: Polyethylene Glycol 3350 17 gm PO PRN (13:40)
[2025-01-19] MEDS ORDERED: Acetaminophen 500 MG Tab PO PRN (13:45)
[2025-01-19] MEDS ORDERED: CeFAZolin Sodium 2,000 MG in NS 100 ML IV SCH (14:00)
[2025-01-19] MEDS ORDERED: NS 250 ML IV PRN (14:05)
[2025-01-19 14:15] LABS: Hematocrit 28.2 % (33.0-51.0); Hemoglobin 9.1 g/dL (11.5-16.0); Mean Corpuscular HGB Conc 32.3 g/dL (31.5-36.5); Mean Corpuscular Volume 93 fL (80-100); Mean Platelet Volume 9.8 fL (9.1-12.4); Platelet Count 190 K/mm3 (150-400); RDW Coefficient Variation 16.5 % (11.7-14.2); RDW Standard Deviation 53.6 fL (35.1-46.3); Red Blood Cell Count 3.03 M/mm3 (3.80-5.20); White Blood Cell Count 14.75 K/mm3 (4.00-11.30)
[2025-01-19 14:38] LABS: Bun/Creatinine Ratio 14.7 (12.0-20.0); Calcium, Blood 8.5 mg/dL (8.5-10.1); Creatinine, Blood 0.41 mg/dL (0.40-1.00); Potassium, Blood 3.7 mmol/L (3.5-5.5)
[2025-01-19 14:46] VITALS: BP 116/80
--- NOTE | 2025-01-19 17:11 | NUR ---
SUMMARY NO ACUTE CHANGES SINCE ARRIVING TO UNIT DIRECT ADMIT. PT REC'D SCHEDULED ABX PER ORDERS. SALINE LOCKED AT THIS TIME. PHOTO TAKEN OF L EYE AND PLACED IN CHART. PT TOLERATING PO. INDEPENDENT IN ROOM. CALL LIGHT IN REACH.
[2025-01-19 20:07] VITALS: BP 117/54
[2025-01-19] MEDS ORDERED: Lactobacil 2-S.Thermo-Bifido 1 1 Cap PO SCH (21:00)
[2025-01-20 03:33] VITALS: BP 118/76
--- NOTE | 2025-01-20 06:47 | NUR ---
SHIFT SUMMARY NO ACUTE CHANGES TO REPORT OVERNIGHT, CELLULITIS TO LEFT EYE UNCHANGED. IV ANTIBIOTICS PER ORERS. PT REPORTS PAIN IS MINIMAL, DECLINES ANYTHING FOR PAIN. PT HAS BEEN INDEPENDENT IN THE ROOM. VITALS STABLE. PLAN OF CARE REMAINS UNCHANGED. BED IN LOWEST POSITION, CALL LIGHT WITHIN REACH.
[2025-01-20 07:28] VITALS: BP 115/61
[2025-01-20] MEDS ORDERED: Cholecalciferol 1000 Unit Tablet (=25MCG) PO SCH (09:00)
[2025-01-20] MEDS ORDERED: Enoxaparin 40 MG/0.4 ML SYR SC SCH (09:00)
[2025-01-20] MEDS ORDERED: Thiamine HCl 100 MG Tab PO SCH (09:00)
[2025-01-20] MEDS ORDERED: CefTRIAXone Sodium 2,000 MG in NS 100 ML IV SCH (12:00)
[2025-01-20] MEDS ORDERED: CEFTRIAXON1 GM/50 M1 IV (13:40)
[2025-01-20 13:48] VITALS: BP 144/86
--- NOTE | 2025-01-20 14:14 | NUR ---
DISCHARGE NOTE PT IS ALERT, INDEPENDENT, AMBULATING. VOIDING, TOLERATING REG DIET, IV ABX GIVEN NEEDED. POWERGLIDE WNL TO DANIELLE, FLUSHES WELL. VSS. DISCHARGE INSTRUCTIONS REVIEWED W/ PT, COPY GIVEN. PT INSTRUCTED TO GO TO [facility] FOR INFUSIONS AT 1100 DAILY, INCLUDING TOMORROW. PT'S CIGARETTES AND RN CLINICAL TRIALS RETURNED. DC'D IN STABLE CONDITION W/ ALL BELONGINGS, PT REFUSED WHEELCHAIR FOR DISCHARGE AND AMBULATED OUT.
== END 2025-01-20 14:13 | disposition home or self-care (01) | DRG 603 ==
LOC: SURS 12:29
PROVIDERS: ADMIT Internal Medicine
DX: L03.213 Periorbital cellulitis (principal); M54.2 Cervicalgia; G89.29 Other chronic pain; F17.210 Nicotine dependence, cigarettes, uncomplicated; D63.8 Anemia in other chronic diseases classified elsewhere; F10.20 Alcohol dependence, uncomplicated; Z98.1 Arthrodesis status; Z79.899 Other long term (current) drug therapy
CPT/HCPCS: 36415; 80048; 85027; 94760; A9270; J0690; J0696; J1650; J7050

== ENCOUNTER 2025-01-21 08:48 | Day surgery (SDC) | payer OTHER ==
[~2025-01-21 08:48] MED LIST changes: +CEFTRIAXON1 GM/50 M1 IV
[2025-01-21] MEDS ORDERED: CefTRIAXone Sodium 2,000 MG in NS 100 ML IV SCH (10:10)
[2025-01-21 11:17] VITALS: BP 118/69
== END 2025-01-21 11:32 | disposition home or self-care (01) ==
LOC: ATC 08:48
DX: L03.213 Periorbital cellulitis (principal); F10.20 Alcohol dependence, uncomplicated; Z72.0 Tobacco use
CPT/HCPCS: 96365; J0696

== ENCOUNTER 2025-01-22 00:35 | Day surgery (SDC) | payer OTHER ==
[2025-01-22] MEDS ORDERED: CefTRIAXone Sodium 2,000 MG in NS 100 ML IV SCH (01:00)
[2025-01-22 10:35] VITALS: BP 115/72
== END 2025-01-22 11:03 | disposition home or self-care (01) ==
LOC: ATC 00:35
DX: L03.213 Periorbital cellulitis (principal); F10.20 Alcohol dependence, uncomplicated; F17.200 Nicotine dependence, unspecified, uncomplicated; Z79.899 Other long term (current) drug therapy
CPT/HCPCS: 96365; J0696

== ENCOUNTER 2025-01-23 01:13 | Day surgery (SDC) | payer OTHER ==
[~2025-01-23 01:13] MED LIST changes: +CefTRIAXone Sodium 2,000 MG in NS 100 ML IV SCH
[2025-01-23 11:34] VITALS: BP 127/84
== END 2025-01-23 11:55 | disposition home or self-care (01) ==
LOC: ATC 01:13
DX: L03.213 Periorbital cellulitis (principal); E87.1 Hypo-osmolality and hyponatremia; E87.6 Hypokalemia; D64.9 Anemia, unspecified; Z72.0 Tobacco use
CPT/HCPCS: 96365; J0696

== ENCOUNTER 2025-01-24 02:04 | Day surgery (SDC) | payer OTHER ==
[2025-01-24 10:56] VITALS: BP 116/74
== END 2025-01-24 11:15 | disposition home or self-care (01) ==
LOC: ATC 02:04
DX: L03.213 Periorbital cellulitis (principal); C71.9 Malignant neoplasm of brain, unspecified; F17.200 Nicotine dependence, unspecified, uncomplicated; Z79.890 Hormone replacement therapy; Z79.899 Other long term (current) drug therapy
CPT/HCPCS: 96365; J0696

== ENCOUNTER 2025-01-25 04:46 | Day surgery (SDC) | payer OTHER ==
[~2025-01-25 04:46] MED LIST changes: -CefTRIAXone Sodium 2,000 MG in NS 100 ML IV SCH
[2025-01-25] MEDS ORDERED: CefTRIAXone Sodium 2,000 MG in NS 100 ML IV SCH (06:00)
[2025-01-25 10:33] VITALS: BP 123/68
== END 2025-01-25 11:01 | disposition home or self-care (01) ==
LOC: ATC 04:46
DX: L03.213 Periorbital cellulitis (principal); F10.20 Alcohol dependence, uncomplicated; F17.200 Nicotine dependence, unspecified, uncomplicated; Z79.899 Other long term (current) drug therapy
CPT/HCPCS: 96365; J0696

== ENCOUNTER 2025-01-26 03:28 | Day surgery (SDC) | payer OTHER ==
[~2025-01-26 03:28] MED LIST changes: +CefTRIAXone Sodium 2,000 MG in NS 100 ML IV SCH
[2025-01-26 10:45] VITALS: BP 115/77
== END 2025-01-26 11:09 | disposition home or self-care (01) ==
LOC: ATC 03:28
DX: L03.213 Periorbital cellulitis (principal); F10.20 Alcohol dependence, uncomplicated; F17.200 Nicotine dependence, unspecified, uncomplicated; Z79.899 Other long term (current) drug therapy
CPT/HCPCS: 96365; J0696

== ENCOUNTER 2025-01-27 01:51 | Day surgery (SDC) | payer OTHER ==
[2025-01-27 10:35] VITALS: BP 133/82
== END 2025-01-27 11:01 | disposition home or self-care (01) ==
LOC: ATC 01:51
DX: L03.213 Periorbital cellulitis (principal); F10.20 Alcohol dependence, uncomplicated; Z72.0 Tobacco use
CPT/HCPCS: 96365; J0696

== ENCOUNTER 2025-02-05 04:01 | Day surgery (SDC) | payer OTHER ==
[~2025-02-05 04:01] MED LIST changes: -CefTRIAXone Sodium 2,000 MG in NS 100 ML IV SCH
[2025-02-05] MEDS ORDERED: CefTRIAXone Sodium 2,000 MG in NS 100 ML IV SCH (06:00)
[2025-02-05 15:41] VITALS: BP 111/66
[2025-02-05] MEDS ORDERED: METR500 PO (15:45)
[2025-02-05 17:09] LABS: BASOPHILS ABSOLUTE AUTO 0.06 K/mm3 (0.00-0.23); BASOPHILS PERCENT AUTO 1 % (0-2); EOSINOPHILS ABSOLUTE AUTO 0.13 K/mm3 (0.00-0.68); EOSINOPHILS PERCENT AUTO 2 % (0-6); Hematocrit 31.1 % (33.0-51.0); Hemoglobin 10.1 g/dL (11.5-16.0); IMMATURE GRAN ABSOLUTE AUTO 0.01 K/mm3 (0.00-0.10); IMMATURE GRAN PERCENT AUTO 0 % (0-1); LYMPHOCYTES ABSOLUTE AUTO 1.59 K/mm3 (0.84-5.20); LYMPHOCYTES PERCENT AUTO 22 % (21-46); MONOCYTES ABSOLUTE AUTO 0.72 K/mm3 (0.16-1.47); MONOCYTES PERCENT AUTO 10 % (4-13); Mean Corpuscular HGB 30.1 pg (26.0-34.0); Mean Corpuscular HGB Conc 32.5 g/dL (31.5-36.5); Mean Corpuscular Volume 93 fL (80-100); Mean Platelet Volume 10.4 fL (9.1-12.4); NEUTROPHILS ABSOLUTE AUTO 4.67 K/mm3 (1.96-9.15); NEUTROPHILS PERCENT AUTO 65 % (41-73); Platelet Count 143 K/mm3 (150-400); RDW Coefficient Variation 16.5 % (11.7-14.2); RDW Standard Deviation 56.1 fL (35.1-46.3); Red Blood Cell Count 3.36 M/mm3 (3.80-5.20); White Blood Cell Count 7.18 K/mm3 (4.00-11.30)
[2025-02-05 17:38] LABS: C-REACTIVE PROTEIN, EXT RANGE 0.357 mg/dL (0.000-0.300)
[2025-02-05 17:41] LABS: Albumin, Blood 3.1 g/dL (3.4-5.0); Albumin/Globulin Ratio 0.5 (0.8-1.8); Bun/Creatinine Ratio 42.5 (12.0-20.0); Calcium, Blood 8.9 mg/dL (8.5-10.1); Creatinine, Blood 0.42 mg/dL (0.40-1.00); Globulin, Blood 6.3 g/dL (2.2-4.0); Potassium, Blood 3.8 mmol/L (3.5-5.5); Total Protein, Blood 9.4 g/dL (6.4-8.2)
== END 2025-02-05 16:03 | disposition home or self-care (01) ==
LOC: ATC 04:01
PROVIDERS: Internal Medicine Infectious Disease
DX: H05.012 Cellulitis of left orbit (principal); B95.61 Methicillin susceptible Staphylococcus aureus infection as the cause of diseases classified elsewhere; F10.10 Alcohol abuse, uncomplicated; D69.6 Thrombocytopenia, unspecified; D64.9 Anemia, unspecified; F17.210 Nicotine dependence, cigarettes, uncomplicated; Z79.899 Other long term (current) drug therapy
CPT/HCPCS: 80053; 85025; 85651; 86140; 96365; J0696

== ENCOUNTER 2025-02-06 02:08 | Day surgery (SDC) | payer OTHER ==
[~2025-02-06 02:08] MED LIST changes: +METR500 PO
[2025-02-06] MEDS ORDERED: CefTRIAXone Sodium 2,000 MG in NS 100 ML IV SCH (06:00)
[2025-02-06 15:59] VITALS: BP 118/74
== END 2025-02-06 16:17 | disposition home or self-care (01) ==
LOC: ATC 02:08
DX: H05.012 Cellulitis of left orbit (principal); D64.9 Anemia, unspecified; D69.6 Thrombocytopenia, unspecified; F10.10 Alcohol abuse, uncomplicated; F17.210 Nicotine dependence, cigarettes, uncomplicated
CPT/HCPCS: 96365; J0696

== ENCOUNTER 2025-02-07 00:34 | Day surgery (SDC) | payer OTHER ==
[2025-02-07] MEDS ORDERED: CefTRIAXone Sodium 2,000 MG in NS 100 ML IV SCH (06:00)
[2025-02-07 15:30] VITALS: BP 127/83
== END 2025-02-07 15:54 | disposition home or self-care (01) ==
LOC: ATC 00:34
DX: H05.012 Cellulitis of left orbit (principal); B95.61 Methicillin susceptible Staphylococcus aureus infection as the cause of diseases classified elsewhere; F17.210 Nicotine dependence, cigarettes, uncomplicated; F10.10 Alcohol abuse, uncomplicated; Z79.899 Other long term (current) drug therapy
CPT/HCPCS: 96365; J0696

== ENCOUNTER 2025-02-08 03:38 | Day surgery (SDC) | payer OTHER ==
[2025-02-08] MEDS ORDERED: CefTRIAXone Sodium 2,000 MG in NS 100 ML IV SCH (06:00)
[2025-02-08 15:34] VITALS: BP 125/75
== END 2025-02-08 16:00 | disposition home or self-care (01) ==
LOC: ATC 03:38
DX: H05.012 Cellulitis of left orbit (principal); B95.61 Methicillin susceptible Staphylococcus aureus infection as the cause of diseases classified elsewhere; F10.10 Alcohol abuse, uncomplicated; F17.210 Nicotine dependence, cigarettes, uncomplicated; Z79.899 Other long term (current) drug therapy
CPT/HCPCS: 96365; J0696

== ENCOUNTER 2025-02-09 13:25 | Day surgery (SDC) | payer OTHER ==
[~2025-02-09 13:25] MED LIST changes: +CefTRIAXone Sodium 2,000 MG in NS 100 ML IV SCH
[2025-02-09 13:31] VITALS: BP 115/75
== END 2025-02-09 13:54 | disposition home or self-care (01) ==
LOC: ATC 13:25
DX: H05.012 Cellulitis of left orbit (principal); B95.61 Methicillin susceptible Staphylococcus aureus infection as the cause of diseases classified elsewhere; F10.10 Alcohol abuse, uncomplicated; F17.210 Nicotine dependence, cigarettes, uncomplicated; Z79.899 Other long term (current) drug therapy
CPT/HCPCS: 96365; J0696

== ENCOUNTER 2025-02-10 13:26 | Day surgery (SDC) | payer OTHER ==
[2025-02-10 14:07] LABS: BASOPHILS PERCENT AUTO 1 % (0-2); EOSINOPHILS ABSOLUTE AUTO 0.08 K/mm3 (0.00-0.68); EOSINOPHILS PERCENT AUTO 1 % (0-6); Hematocrit 30.4 % (33.0-51.0); Hemoglobin 9.8 g/dL (11.5-16.0); IMMATURE GRAN ABSOLUTE AUTO 0.03 K/mm3 (0.00-0.10); IMMATURE GRAN PERCENT AUTO 0 % (0-1); LYMPHOCYTES ABSOLUTE AUTO 1.21 K/mm3 (0.84-5.20); LYMPHOCYTES PERCENT AUTO 14 % (21-46); MONOCYTES ABSOLUTE AUTO 0.51 K/mm3 (0.16-1.47); MONOCYTES PERCENT AUTO 6 % (4-13); Mean Corpuscular HGB 29.9 pg (26.0-34.0); Mean Corpuscular HGB Conc 32.2 g/dL (31.5-36.5); Mean Corpuscular Volume 93 fL (80-100); Mean Platelet Volume 9.6 fL (9.1-12.4); NEUTROPHILS ABSOLUTE AUTO 6.73 K/mm3 (1.96-9.15); NEUTROPHILS PERCENT AUTO 78 % (41-73); Platelet Count 171 K/mm3 (150-400); RDW Coefficient Variation 16.2 % (11.7-14.2); RDW Standard Deviation 55.1 fL (35.1-46.3); Red Blood Cell Count 3.28 M/mm3 (3.80-5.20); White Blood Cell Count 8.66 K/mm3 (4.00-11.30)
[2025-02-10 14:10] VITALS: BP 103/68
[2025-02-10 14:20] LABS: Alanine Aminotransfer (ALT/SGP 18 U/L (12-78); Albumin/Globulin Ratio 0.5 (0.8-1.8); Alk Phos 77 U/L (50-136); Anion Gap 7 mmol/L (3-11); Aspartate Aminotrans (AST/SGOT 29 U/L (12-37); Bilirubin, Total 0.8 mg/dL (0.1-1.0); Blood Urea Nitrogen 8 mg/dL (8-24); Bun/Creatinine Ratio 12.4 (12.0-20.0); CO2, Blood 25 mmol/L (21-32); Calcium, Blood 8.5 mg/dL (8.5-10.1); Chloride, Blood 104 mmol/L (98-108); Creatinine, Blood 0.65 mg/dL (0.40-1.00); Globulin, Blood 5.6 g/dL (2.2-4.0); Glomerular Filtration Rate 109 (60-); Glucose, Blood 127 mg/dL (70-99); Potassium, Blood 3.7 mmol/L (3.5-5.5); Sodium, Blood 132 mmol/L (136-145); Total Protein, Blood 8.6 g/dL (6.4-8.2)
[2025-02-10 14:34] LABS: C-REACTIVE PROTEIN, EXT RANGE <0.290 mg/dL (0.000-0.300)
== END 2025-02-10 14:11 | disposition home or self-care (01) ==
LOC: ATC 13:26
PROVIDERS: Internal Medicine Infectious Disease
DX: H05.012 Cellulitis of left orbit (principal); B95.61 Methicillin susceptible Staphylococcus aureus infection as the cause of diseases classified elsewhere; F10.10 Alcohol abuse, uncomplicated; F17.210 Nicotine dependence, cigarettes, uncomplicated; Z79.899 Other long term (current) drug therapy
CPT/HCPCS: 80053; 85025; 85651; 86140; 96365; J0696

== ENCOUNTER 2025-02-11 02:55 | Day surgery (SDC) | payer OTHER ==
[2025-02-11 13:35] VITALS: BP 121/76
== END 2025-02-11 13:57 | disposition home or self-care (01) ==
LOC: ATC 02:55
DX: H05.012 Cellulitis of left orbit (principal); B95.61 Methicillin susceptible Staphylococcus aureus infection as the cause of diseases classified elsewhere; F10.10 Alcohol abuse, uncomplicated; F17.210 Nicotine dependence, cigarettes, uncomplicated; Z79.899 Other long term (current) drug therapy
CPT/HCPCS: 96365; J0696

== ENCOUNTER 2025-02-13 04:48 | Day surgery (SDC) | payer OTHER ==
[~2025-02-13 04:48] MED LIST changes: -CefTRIAXone Sodium 2,000 MG in NS 100 ML IV SCH
[2025-02-13] MEDS ORDERED: CefTRIAXone Sodium 2,000 MG in NS 100 ML IV SCH (06:00)
[2025-02-13 13:34] VITALS: BP 107/79
== END 2025-02-13 13:56 | disposition home or self-care (01) ==
LOC: ATC 04:48
DX: H05.012 Cellulitis of left orbit (principal); B95.61 Methicillin susceptible Staphylococcus aureus infection as the cause of diseases classified elsewhere; F10.10 Alcohol abuse, uncomplicated; F17.200 Nicotine dependence, unspecified, uncomplicated; Z79.899 Other long term (current) drug therapy
CPT/HCPCS: 96365; J0696

== ENCOUNTER 2025-02-14 02:38 | Day surgery (SDC) | payer OTHER ==
[~2025-02-14 02:38] MED LIST changes: +CefTRIAXone Sodium 2,000 MG in NS 100 ML IV SCH
[2025-02-14 13:40] VITALS: BP 113/77
== END 2025-02-14 14:02 | disposition home or self-care (01) ==
LOC: ATC 02:38
DX: H05.012 Cellulitis of left orbit (principal); D64.9 Anemia, unspecified; F17.210 Nicotine dependence, cigarettes, uncomplicated; Z79.899 Other long term (current) drug therapy
CPT/HCPCS: 96365; J0696

== ENCOUNTER 2025-02-15 04:24 | Day surgery (SDC) | payer OTHER ==
[~2025-02-15 04:24] MED LIST changes: -CefTRIAXone Sodium 2,000 MG in NS 100 ML IV SCH
[2025-02-15] MEDS ORDERED: CefTRIAXone Sodium 2,000 MG in NS 100 ML IV SCH (06:00)
[2025-02-15 13:55] VITALS: BP 109/69
[2025-02-16] MEDS ORDERED: CefTRIAXone Sodium 2,000 MG in NS 100 ML IV SCH (01:00)
== END 2025-02-15 14:13 | disposition home or self-care (01) ==
LOC: ATC 04:24
DX: H05.012 Cellulitis of left orbit (principal); B95.61 Methicillin susceptible Staphylococcus aureus infection as the cause of diseases classified elsewhere; F10.10 Alcohol abuse, uncomplicated; F17.210 Nicotine dependence, cigarettes, uncomplicated; Z79.899 Other long term (current) drug therapy
CPT/HCPCS: 96365; C1751; J0696

== ENCOUNTER 2025-02-16 03:01 | Day surgery (SDC) | payer OTHER ==
[~2025-02-16 03:01] MED LIST changes: +CefTRIAXone Sodium 2,000 MG in NS 100 ML IV SCH
[2025-02-16 13:35] VITALS: BP 107/66
== END 2025-02-16 14:05 | disposition home or self-care (01) ==
LOC: ATC 03:01
DX: H05.012 Cellulitis of left orbit (principal); F10.90 Alcohol use, unspecified, uncomplicated; D64.89 Other specified anemias; E83.42 Hypomagnesemia; F17.210 Nicotine dependence, cigarettes, uncomplicated
CPT/HCPCS: 96365; J0696

== ENCOUNTER 2025-02-17 03:00 | Day surgery (SDC) | payer OTHER ==
[~2025-02-17 03:00] MED LIST changes: -CefTRIAXone Sodium 2,000 MG in NS 100 ML IV SCH
[2025-02-17] MEDS ORDERED: CefTRIAXone Sodium 2,000 MG in NS 100 ML IV SCH (06:00)
[2025-02-17 13:04] LABS: BASOPHILS ABSOLUTE AUTO 0.06 K/mm3 (0.00-0.23); BASOPHILS PERCENT AUTO 1 % (0-2); EOSINOPHILS ABSOLUTE AUTO 0.15 K/mm3 (0.00-0.68); EOSINOPHILS PERCENT AUTO 2 % (0-6); Hematocrit 30.9 % (33.0-51.0); Hemoglobin 10.1 g/dL (11.5-16.0); IMMATURE GRAN ABSOLUTE AUTO 0.01 K/mm3 (0.00-0.10); IMMATURE GRAN PERCENT AUTO 0 % (0-1); LYMPHOCYTES PERCENT AUTO 17 % (21-46); MONOCYTES ABSOLUTE AUTO 0.47 K/mm3 (0.16-1.47); MONOCYTES PERCENT AUTO 7 % (4-13); Mean Corpuscular HGB 29.8 pg (26.0-34.0); Mean Corpuscular HGB Conc 32.7 g/dL (31.5-36.5); Mean Corpuscular Volume 91 fL (80-100); NEUTROPHILS ABSOLUTE AUTO 5.27 K/mm3 (1.96-9.15); NEUTROPHILS PERCENT AUTO 74 % (41-73); Platelet Count 143 K/mm3 (150-400); RDW Coefficient Variation 16.7 % (11.7-14.2); RDW Standard Deviation 55.9 fL (35.1-46.3); Red Blood Cell Count 3.39 M/mm3 (3.80-5.20); White Blood Cell Count 7.16 K/mm3 (4.00-11.30)
[2025-02-17 13:42] LABS: C-REACTIVE PROTEIN, EXT RANGE <0.290 mg/dL (0.000-0.300)
[2025-02-17 13:46] LABS: Ferritin, Serum 64 ng/mL (8-252)
[2025-02-17 14:06] LABS: Alanine Aminotransfer (ALT/SGP 16 U/L (12-78); Albumin/Globulin Ratio 0.6 (0.8-1.8); Alk Phos 70 U/L (50-136); Anion Gap 8 mmol/L (3-11); Aspartate Aminotrans (AST/SGOT 30 U/L (12-37); Blood Urea Nitrogen 7 mg/dL (8-24); Bun/Creatinine Ratio 14.9 (12.0-20.0); CO2, Blood 26 mmol/L (21-32); Calcium, Blood 8.5 mg/dL (8.5-10.1); Chloride, Blood 102 mmol/L (98-108); Creatinine, Blood 0.47 mg/dL (0.40-1.00); Globulin, Blood 5.3 g/dL (2.2-4.0); Glomerular Filtration Rate 118 (60-); Glucose, Blood 95 mg/dL (70-99); Potassium, Blood 3.6 mmol/L (3.5-5.5); Sodium, Blood 132 mmol/L (136-145); Thyroid Stimulating Hormone 0.823 uIU/mL (0.360-4.800); Total Protein, Blood 8.3 g/dL (6.4-8.2); Triiodothyronine, Free 2.41 pg/mL (2.18-3.98)
== END 2025-02-17 12:48 | disposition home or self-care (01) ==
LOC: ATC 03:00
PROVIDERS: Internal Medicine Infectious Disease
DX: H05.012 Cellulitis of left orbit (principal); F10.90 Alcohol use, unspecified, uncomplicated; D64.89 Other specified anemias; E83.42 Hypomagnesemia; Z79.899 Other long term (current) drug therapy
CPT/HCPCS: 80053; 82306; 82533; 82607; 82728; 83036; 84439; 84443; 84481; 85025; 85651; 86140; 96365; J0696

== ENCOUNTER 2025-02-18 00:13 | Day surgery (SDC) | payer OTHER ==
[2025-02-18] MEDS ORDERED: CefTRIAXone Sodium 2,000 MG in NS 100 ML IV SCH (01:00)
[2025-02-18 13:42] VITALS: BP 113/75
== END 2025-02-18 14:00 | disposition home or self-care (01) ==
LOC: ATC 00:13
DX: H05.012 Cellulitis of left orbit (principal); F17.210 Nicotine dependence, cigarettes, uncomplicated; F10.10 Alcohol abuse, uncomplicated; D64.9 Anemia, unspecified; Z79.899 Other long term (current) drug therapy
CPT/HCPCS: 96365; J0696

== ENCOUNTER 2025-02-19 03:48 | Day surgery (SDC) | payer OTHER ==
[~2025-02-19 03:48] MED LIST changes: +CefTRIAXone Sodium 2,000 MG in NS 100 ML IV SCH
[2025-02-19 13:40] VITALS: BP 102/74
== END 2025-02-19 13:58 | disposition home or self-care (01) ==
LOC: ATC 03:48
DX: H05.012 Cellulitis of left orbit (principal); F10.90 Alcohol use, unspecified, uncomplicated
CPT/HCPCS: 96365; J0696

== ENCOUNTER 2025-02-20 01:38 | Day surgery (SDC) | payer OTHER ==
[~2025-02-20 01:38] MED LIST changes: -CefTRIAXone Sodium 2,000 MG in NS 100 ML IV SCH
[2025-02-20] MEDS ORDERED: CefTRIAXone Sodium 2,000 MG in NS 100 ML IV SCH (06:00)
[2025-02-20 13:50] VITALS: BP 118/85
== END 2025-02-20 14:10 | disposition home or self-care (01) ==
LOC: ATC 01:38
DX: H05.012 Cellulitis of left orbit (principal); B95.61 Methicillin susceptible Staphylococcus aureus infection as the cause of diseases classified elsewhere; F10.10 Alcohol abuse, uncomplicated; D69.6 Thrombocytopenia, unspecified; D64.9 Anemia, unspecified; F17.210 Nicotine dependence, cigarettes, uncomplicated; Z79.899 Other long term (current) drug therapy
CPT/HCPCS: 96365; J0696

== ENCOUNTER 2025-02-22 00:43 | Day surgery (SDC) | payer OTHER ==
[2025-02-22] MEDS ORDERED: CefTRIAXone Sodium 2,000 MG in NS 100 ML IV SCH (06:00)
[2025-02-22 13:46] VITALS: BP 112/74
== END 2025-02-22 14:08 | disposition home or self-care (01) ==
LOC: ATC 00:43
DX: H05.012 Cellulitis of left orbit (principal); F10.10 Alcohol abuse, uncomplicated
CPT/HCPCS: 96365; J0696

== ENCOUNTER 2025-02-25 01:10 | Day surgery (SDC) | payer OTHER ==
[~2025-02-25 01:10] MED LIST changes: +CefTRIAXone Sodium 2,000 MG in NS 100 ML IV SCH
[2025-02-25 13:45] VITALS: BP 115/89
== END 2025-02-25 14:07 | disposition home or self-care (01) ==
LOC: ATC 01:10
DX: H05.012 Cellulitis of left orbit (principal); B95.61 Methicillin susceptible Staphylococcus aureus infection as the cause of diseases classified elsewhere; B95.0 Streptococcus, group A, as the cause of diseases classified elsewhere; F10.120 Alcohol abuse with intoxication, uncomplicated; F17.210 Nicotine dependence, cigarettes, uncomplicated; Z79.899 Other long term (current) drug therapy
CPT/HCPCS: 96365; J0696

== ENCOUNTER 2025-02-26 02:33 | Day surgery (SDC) | payer OTHER ==
[~2025-02-26 02:33] MED LIST changes: -CefTRIAXone Sodium 2,000 MG in NS 100 ML IV SCH
[2025-02-26] MEDS ORDERED: CefTRIAXone Sodium 2,000 MG in NS 100 ML IV SCH (06:00)
[2025-02-26 13:37] VITALS: BP 116/82
[2025-02-26 15:39] LABS: Alanine Aminotransfer (ALT/SGP 18 U/L (12-78); Albumin, Blood 3.5 g/dL (3.4-5.0); Albumin/Globulin Ratio 0.6 (0.8-1.8); Alk Phos 84 U/L (50-136); Anion Gap 8 mmol/L (3-11); Aspartate Aminotrans (AST/SGOT 39 U/L (12-37); Bilirubin, Total 1.4 mg/dL (0.1-1.0); Blood Urea Nitrogen 3 mg/dL (8-24); Bun/Creatinine Ratio 7.7 (12.0-20.0); C-REACTIVE PROTEIN, EXT RANGE <0.290 mg/dL (0.000-0.300); CO2, Blood 27 mmol/L (21-32); Chloride, Blood 103 mmol/L (98-108); Creatinine, Blood 0.39 mg/dL (0.40-1.00); Globulin, Blood 5.6 g/dL (2.2-4.0); Glomerular Filtration Rate 124 (60-); Glucose, Blood 95 mg/dL (70-99); Potassium, Blood 3.4 mmol/L (3.5-5.5); Sodium, Blood 135 mmol/L (136-145); Total Protein, Blood 9.1 g/dL (6.4-8.2)
== END 2025-02-26 13:58 | disposition home or self-care (01) ==
LOC: ATC 02:33
PROVIDERS: Internal Medicine Infectious Disease
DX: H05.012 Cellulitis of left orbit (principal); F10.10 Alcohol abuse, uncomplicated; F17.210 Nicotine dependence, cigarettes, uncomplicated; Z79.899 Other long term (current) drug therapy
CPT/HCPCS: 80053; 85651; 86140; 96365; J0696

== ENCOUNTER 2025-02-27 03:11 | Day surgery (SDC) | payer OTHER ==
[~2025-02-27 03:11] MED LIST changes: +CefTRIAXone Sodium 2,000 MG in NS 100 ML IV SCH
== END 2025-02-27 13:56 | disposition home or self-care (01) ==
LOC: ATC 03:11
DX: H05.012 Cellulitis of left orbit (principal); D64.9 Anemia, unspecified; F17.210 Nicotine dependence, cigarettes, uncomplicated; F10.10 Alcohol abuse, uncomplicated; Z79.899 Other long term (current) drug therapy
CPT/HCPCS: 96365; J0696

== ENCOUNTER 2025-02-28 04:08 | Day surgery (SDC) | payer OTHER ==
[~2025-02-28 04:08] MED LIST changes: -CefTRIAXone Sodium 2,000 MG in NS 100 ML IV SCH
[2025-02-28] MEDS ORDERED: CefTRIAXone Sodium 2,000 MG in NS 100 ML IV SCH (06:00)
[2025-02-28 13:42] VITALS: BP 116/82
== END 2025-02-28 14:07 | disposition home or self-care (01) ==
LOC: ATC 04:08
DX: H05.012 Cellulitis of left orbit (principal); F10.90 Alcohol use, unspecified, uncomplicated; E87.1 Hypo-osmolality and hyponatremia; E83.42 Hypomagnesemia; Z79.899 Other long term (current) drug therapy
CPT/HCPCS: 96365; J0696

== ENCOUNTER 2025-04-23 09:06 | Emergency (ER) | payer OTHER ==
[~2025-04-23] VITALS: Ht 165.1 cm; Wt 54.4 kg
[2025-04-23 10:10] LABS: BASOPHILS ABSOLUTE AUTO 0.07 K/mm3 (0.00-0.23); BASOPHILS PERCENT AUTO 1 % (0-2); EOSINOPHILS ABSOLUTE AUTO 0.05 K/mm3 (0.00-0.68); EOSINOPHILS PERCENT AUTO 1 % (0-6); Hematocrit 32.2 % (33.0-51.0); Hemoglobin 10.4 g/dL (11.5-16.0); IMMATURE GRAN ABSOLUTE AUTO 0.02 K/mm3 (0.00-0.10); IMMATURE GRAN PERCENT AUTO 0 % (0-1); LYMPHOCYTES ABSOLUTE AUTO 1.18 K/mm3 (0.84-5.20); LYMPHOCYTES PERCENT AUTO 19 % (21-46); MONOCYTES ABSOLUTE AUTO 0.62 K/mm3 (0.16-1.47); MONOCYTES PERCENT AUTO 10 % (4-13); Mean Corpuscular HGB 27.5 pg (26.0-34.0); Mean Corpuscular HGB Conc 32.3 g/dL (31.5-36.5); Mean Corpuscular Volume 85 fL (80-100); NEUTROPHILS ABSOLUTE AUTO 4.17 K/mm3 (1.96-9.15); NEUTROPHILS PERCENT AUTO 68 % (41-73); Platelet Count 101 K/mm3 (150-400); RDW Coefficient Variation 16.2 % (11.7-14.2); RDW Standard Deviation 50.5 fL (35.1-46.3); Red Blood Cell Count 3.78 M/mm3 (3.80-5.20); White Blood Cell Count 6.11 K/mm3 (4.00-11.30)
[2025-04-23 10:37] LABS: Albumin, Blood 3.7 g/dL (3.4-5.0); Albumin/Globulin Ratio 0.8 (0.8-1.8); Bilirubin, Total 1.4 mg/dL (0.1-1.0); Calcium, Blood 8.8 mg/dL (8.5-10.1); Creatinine, Blood 0.4 mg/dL (0.40-1.00); Globulin, Blood 4.5 g/dL (2.2-4.0); Potassium, Blood 3.6 mmol/L (3.5-5.5); Total Protein, Blood 8.2 g/dL (6.4-8.2)
[2025-04-23 11:39] VITALS: BP 122/74
== END 2025-04-23 13:04 | disposition home or self-care (01) ==
LOC: ER 09:06
PROVIDERS: Emergency Medicine
DX: F10.929 Alcohol use, unspecified with intoxication, unspecified (principal); Y90.8 Blood alcohol level of 240 mg/100 ml or more
CPT/HCPCS: 80053; 80320; 85025; 99284